=== PATIENT | female | born 1950 | race Caucasian/White ===

== ENCOUNTER 2019-09-08 19:57 | Emergency (ER) | payer SELFPAY ==
[~2019-09-08] VITALS: Ht 149.9 cm; Wt 74.4 kg
[2019-09-08] MEDS ORDERED: TETANUS, DIPHTHERIA, PERTUSSIS VAC/PF 0.5ML (>7YR OLD) IM ONE (21:30)
[2019-09-08] MEDS ORDERED: CEFAZOLIN 1000MG PREMIX 50 ML IV ONE (22:45)
[2019-09-08 23:17] LABS: BASOPHILS % 0.5 % (0.0-2.0); EOSINOPHILS % 3.2 % (0.0-5.0); HEMATOCRIT. 37.5 % (36.0-48.0); HEMOGLOBIN. 13.1 g/dL (12.0-16.0); LYMPHOCYTES % 28.4 % (20.0-50.0); MEAN CORPUSCULAR HEMOGLOBIN 31.2 pg (28.0-32.0); MEAN CORPUSCULAR VOLUME 89.6 fL (81.0-99.0); MEAN PLATELET VOLUME 7.1 fl (7.4-10.4); MONOCYTES % 7.5 % (2.0-8.0); NEUTROPHILS % 60.4 % (40.0-76.0); PLATELET 278 x1000/uL (130-400); RED BLOOD CELL COUNT 4.19 mill/uL (4.2-5.4); RED CELL DISTRIBUTION WIDTH 12.5 % (11.6-14.6)
[2019-09-08 23:20] LABS: CHLORIDE 103 mEq/L (98-107)
[2019-09-08 23:22] LABS: PROTHROMBIN TIME 10.5 sec (9.6-11.0)
[2019-09-09] MEDS ORDERED: HYDRALAZINE 20MG/ML VIAL IV SCH (00:30)
[2019-09-09] MEDS ORDERED: HYDROCODONE/ACETAMINOPHEN 5/325MG TABLET PO ONE (05:00)
[2019-09-09 11:31] VITALS: BP 160/78
== END 2019-09-09 12:01 | disposition short-term general hospital (02) ==
LOC: ER 19:57
DX: S62.630A Displaced fracture of distal phalanx of right index finger, initial encounter for closed fracture (principal); E11.9 Type 2 diabetes mellitus without complications; I10 Essential (primary) hypertension; Z89.021 Acquired absence of right finger(s); W22.8XXA Striking against or struck by other objects, initial encounter; Y93.89 Activity, other specified; Y92.89 Other specified places as the place of occurrence of the external cause; Y99.8 Other external cause status
CPT/HCPCS: 36415; 73140; 80053; 85025; 85610; 90471; 90715; 96365; 96375; 99285; J0360; J0690